=== PATIENT | male | born 2000 | race Caucasian/White ===

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

== ENCOUNTER 2021-01-06 17:10 | Emergency (ER) | payer BC, SELFPAY ==
[2021-01-06 17:12] VITALS: BP 137/74; PULSE 118; RESP 20; TEMP 37.3; O2SAT 95; BMI 33.5
--- NOTE | 2021-01-06 17:42 | EDS_ITS ---
HPI History of Present Illness Chief Complaint: Fever Narrative Narrative: Patient presenting with chills, mild cough, body aches. He has no change in taste or smell. Patient symptoms have been 2 days in duration. He states he is not significantly short of breath. Patient did have a fever prior to coming in took ibuprofen and currently he is afebrile. Patient states he has also had nausea with his illness. He denies sick contacts. He has not had a Covid vaccine. PFSH PFS Medical History Heart murmur Home Medications ondansetron HCl [Zofran] 4 mg PO Q8H PRN #14 tab 01/06/21 [Rx Last Taken Unknown] Allergy/AdvReac Type Severity Reaction Status Date / Time amoxicillin Allergy Rash Verified 01/06/21 17:11 Social History Smoking Status: Never smoker ROS ROS ED Constitutional Constitutional ED: Reports chills and fever(s) Eyes Eyes: Denies blurry vision or diplopia ENT ENT ED: Denies rhinorrhea or sore throat Cardiovascular Cardiovascular: Denies chest pain or palpitations Respiratory/Chest Respiratory/Chest: Reports cough; Denies dyspnea or sputum Gastrointestinal Gastrointestinal: Reports nausea; Denies abdominal pain, constipation, diarrhea or vomiting Genitourinary Genitourinary ED: Denies dysuria or hematuria Musculoskeletal Musculoskeletal: Reports myalgias; Denies arthralgias, back pain or neck pain Integumentary Denies abscess or rash Neurologic Neurologic: Reports headache(s); Denies paresthesias or weakness EXAM Physical Exam Const Vital Signs: 01/06/21 17:12 01/06/21 17:26 Temperature 99.1 F Temperature Source Temporal Pulse Rate 118 H Respiratory Rate 20 H Respiratory Effort Normal Non-Labored Respiratory Pattern Normal Blood Pressure 137/74 H Blood Pressure Mean 95 Pulse Ox 95 Oxygen Delivery Method Room Air Positive well nourished General Appearance ED: NAD; Negative for cyanotic or diaphoretic HEENT Reports moist mucous membranes Negative for trauma Eyes PERRL and EOMs intact bilaterally Neck no lymphadenopathy and supple Resp normal respiratory effort and clear to auscultation bilaterally Cardio regular rate and regular rhythm Extremity normal to inspection General Extremety ED: Negative for edema or tenderness General Extremity: Negative for edema Neuro oriented x3 and CN's II-XII intact bilaterally Sensorium / Orientation: alert Skin no rashes or lesions noted MDM MDM MDM Narrative Medical decision making narrative: Patient presenting with fever that has resolved as well as body aches, chills, nausea. Patient states he has been sick for 2 days. Patient had rapid Covid testing which was negative. Chest x-ray on my interpretation shows no acute cardiopulmonary process. Patient did indicate that he would like to have the Covid vaccine however I counseled him that he should wait until his symptoms have resolved and then he should get vaccinated for COVID-19. I did pre parole counseling aide him that what ever he has a still viral and that he should stay away from other people to prevent other illness. Patient amenable this plan. Patient was given Zofran for home for his nausea. He is encouraged to drink plenty of p.o. fluids and take Tylenol and ibuprofen for fevers. He is given return precautions. Impression: 1. Viral syndrome Discharge Plan Triage Chief Complaint: Fever ED Provider: Henrique Simpson Dx/Rx/DC Orders Instructions: ED Viral Syndrome (Adult) Prescriptions: New ondansetron HCl [Zofran] 4 mg tablet 4 mg PO Q8H PRN (Reason: nausea and vomiting) Qty: 14 RF: 0 Primary Care Provider: Carlos Prasad Referrals: Carlos Prasad MD [Primary Care Provider] - Disposition Disposition: Home, Self Care
--- NOTE | 2021-01-06 17:51 | RAD_ITS ---
STUDY: X-RAY CHEST REASON FOR EXAM: Male, 20 years old. Cough TECHNIQUE: Single AP portable view of the chest. COMPARISON: None. FINDINGS: The lungs are clear and expanded. There is no demonstrated pleural abnormality. Normal size heart. Normal mediastinum and marshall. Normal visualized pulmonary arteries. Normal visualized aortic arch and descending thoracic aorta. Normal visualized thoracic spine. Normal visualized ribs, clavicles, and shoulders. There is no demonstrated abnormality of the visualized soft tissue structures of the upper abdomen. RAD/Chest 1 View (Portable) IMPRESSION: Normal x-ray examination of the chest. Electronically Signed: Abundio Mosher MD at 15:25 EDT , Service support ,
[2021-01-06 18:55] VITALS: PULSE 111; RESP 20; TEMP 38.2; O2SAT 97
== END 2021-01-06 18:58 | disposition home or self-care (01) ==
LOC: ED 18:21
PROVIDERS: Emergency Provider Student in an Organized Health Care Education/Training Program; PCP Pediatrics
DX: B34.9 Viral infection, unspecified (principal); R68.83 Chills (without fever); R05 Cough; M79.10 Myalgia, unspecified site; R11.0 Nausea; R51.9 Headache, unspecified
CPT/HCPCS: 71045; 87426; 99282

== ENCOUNTER 2021-01-15 09:01 | Observation (INO) | payer BC, SELFPAY ==
[2021-01-15] VITALS (12 sets, daily range): BP systolic 113–129; BP diastolic 62–75; PULSE 74–105; RESP 16–30; TEMP 36.8–38.1; O2SAT 93–96; BMI 32.1; BMI 31.3
--- NOTE | 2021-01-15 09:26 | RAD_ITS ---
STUDY: X-RAY CHEST REASON FOR EXAM: Male, 20 years old. 2 week history of Covid type symptoms. TECHNIQUE: Single AP portable view of the chest. COMPARISON: Comparison is made with prior study dated 01/06/2021. FINDINGS: EKG electrode are seen. New infiltrates are seen in the lingular segment of the left upper lobe as well as the left lower lobe. There is no demonstrated pleural abnormality. Normal size heart. Normal mediastinum and marshall. Normal visualized pulmonary arteries. Normal visualized aortic arch and descending thoracic aorta. Normal visualized thoracic spine. Normal visualized ribs, clavicles, and shoulders. There is no demonstrated abnormality of the visualized soft tissue structures of the upper abdomen. RAD/Chest 1 View (Portable) IMPRESSION: Left lower lobe and lingular infiltrates. Electronically Signed: Abundio Mosher MD at 10:11 EDT , Service support ,
--- NOTE | 2021-01-15 09:28 | EX.ED.DYSGE1 ---
HPI History of Present Illness Chief Complaint: Cough Narrative Narrative: 20-year-old male presenting with shortness of breath and cough. Patient states symptoms started approximately 10 days ago. He was seen in the ED 9 days ago and tested negative for Covid. He tested positive for Covid 2 days ago at [facility]. Complains of body aches, shortness of breath. He has not been vaccinated for Covid. Recent Illness/Hospitalization: No PFSH PFS Medical History Heart murmur Home Medications ondansetron HCl [Zofran] 4 mg PO Q8H PRN #14 tab 01/06/21 [Rx Last Taken Unknown] aripiprazole [Abilify] 5 mg PO DAILY 01/15/21 [History Last Taken Unknown] desvenlafaxine succinate [Pristiq] 50 mg PO DAILY 01/15/21 [History Last Taken Unknown] Allergy/AdvReac Type Severity Reaction Status Date / Time amoxicillin Allergy Rash Verified 01/15/21 09:04 Social History Smoking Status: Never smoker ROS ROS ED Constitutional Constitutional ED: Reports fever(s) Eyes Eyes: Denies change in vision ENT ENT ED: Denies rhinorrhea or sore throat Cardiovascular Cardiovascular: Denies chest pain or palpitations Respiratory/Chest Respiratory/Chest: Reports cough and dyspnea Gastrointestinal Gastrointestinal: Reports diarrhea; Denies abdominal pain, nausea or vomiting Genitourinary Genitourinary ED: Denies dysuria Musculoskeletal Musculoskeletal: Reports myalgias Integumentary Denies rash Neurologic Neurologic: Denies headache(s) Psychiatric Psychiatric: Denies suicidal thoughts EXAM Physical Exam Const Vital Signs: 01/15/21 09:02 01/15/21 09:28 01/15/21 10:08 Temperature 100.6 F H 100.6 F H 100.6 F H Temperature Source Temporal Temporal Temporal Pulse Rate 105 H 102 H 101 H Respiratory Rate 27 H 30 H 18 Respiratory Effort Short of Breath Respiratory Pattern Tachypnea Blood Pressure 129/75 H 123/74 H 118/71 Blood Pressure Mean 93 90 86 Pulse Ox 93 94 94 Oxygen Delivery Method Room Air Room Air 01/15/21 11:36 01/15/21 12:00 Temperature 98.6 F 98.6 F Temperature Source Oral Oral Pulse Rate 85 81 Respiratory Rate 20 H 18 Respiratory Effort Respiratory Pattern Blood Pressure 116/70 120/71 Blood Pressure Mean 85 87 Pulse Ox 94 94 Oxygen Delivery Method Room Air Room Air Positive well nourished and well developed General Appearance ED: well developed HEENT Reports normocephalic and head/scalp atraumatic Eyes PERRL and EOMs intact bilaterally Neck supple General: Negative for tenderness Chest Wall inspection of chest normal Resp normal respiratory effort and clear to auscultation bilaterally Cardio regular rate and regular rhythm GI non-tender and non-distended Palpation: soft; Negative for guarding or rebound tenderness present no CVA tenderness Extremity normal to inspection Neuro oriented x3 Sensorium / Orientation: alert Psych mental status grossly normal MDM MDM MDM Narrative Medical decision making narrative: Patient was given IV fluids, Tylenol. Due to elevated D-dimer, CTA chest was obtained. CTA chest shows diffuse bilateral pulmonary emboli. Bilateral alveolar infiltrates as well as airspace disease in the lingular segment of the left upper lobe as well as the left lower lobe. Patient will be started on Eliquis. Discussed with hospitalist for admission. Lab Data Attestation: I reviewed the patient's lab results. Labs: Laboratory Results - last 24 hr 01/15/21 01/15/21 01/15/21 09:50 09:50 09:50 WBC 8.0 RBC 5.35 Hgb 15.0 Hct 46.3 MCV 86.5 MCH 28.0 MCHC 32.4 RDW Std Deviation 38.4 RDW Coeff of Uriel 12.0 Plt Count 276 MPV 9.5 Immature Gran % (Auto) 0.500 Neut % (Auto) 74.9 H Lymph % (Auto) 16.5 L [place] % (Auto) 7.6 Eos % (Auto) 0.4 Baso % (Auto) 0.1 Absolute Neuts (auto) 6.0 Absolute Lymphs (auto) 1.32 Nucleated RBC % 0 D-Dimer Quant (PE/DVT) 1.26 H* Sodium 132 L Potassium 3.6 Chloride 96 L Carbon Dioxide 27.0 Anion Gap 9 BUN 11 Creatinine 0.81 Estim Creat Clear Calc 146.69 Est GFR (MDRD) Af Amer 157 Est GFR (MDRD) Non-Af 130 BUN/Creatinine Ratio 13.6 Glucose 89 Calcium 8.7 Radiography Diagnostic Testing: Radiology Impression Chest X-Ray 01/15/21 09:26 IMPRESSION: Left lower lobe and lingular infiltrates. Electronically Signed: Abundio Mosher MD at 10:11 EDT , Service support , Chest CTA 01/15/21 10:16 IMPRESSION: Diffuse bilateral pulmonary emboli. Bilateral alveolar infiltrates as well as airspace disease in the lingular segment of the left upper lobe as well as the left lower lobe. Electronically Signed: Abundio Mosher MD at 10:58 EDT , Service support , Discharge Plan Dx/Rx/DC Orders Clinical Impression: Pneumonia due to COVID-19 virus, Bilateral pulmonary embolism Disposition Disposition: Acute Care [facility]
[2021-01-15 09:59] LABS: Absolute Lymphocyte Count 1.32 X10^3/uL (0.83-4.51); Basophil# 0.01 X10^3/uL; Basophil% 0.1 % (0-1); Eosinophil# 0.03 X10^3/uL; Eosinophils% 0.4 % (0-5); Hematocrit 46.3 % (40-54); Lymphocyte # 1.32 X10^3/ul (0.83-4.51); Lymphocyte % 16.5 % (19-41); Mean Corp Hgb Conc 32.4 g/dL (32-36); Mean Corpuscular Volume 86.5 fL (80-94); Mean Platelet Vol. 9.5 fl (6.2-12.0); Monocyte# 0.61 X10^3/uL; Monocyte% 7.6 % (0-10); NRBC Flagged by Analyzer 0 % (0-5); Neutrophil % 74.9 % (47-70); Platelet Count 276 K/mm3 (150-450); RBC Distribution Width SD 38.4 fl (35.1-43.9); Red Blood Count 5.35 M/mm3 (4.6-6.2)
[2021-01-15 10:07] LABS: Anion Gap 9 (5-15); BUN 11 mg/dL (7-18); BUN/Creat Ratio 13.6 RATIO (10-20); Calcium,Total 8.7 mg/dL (8.5-10.1); Chloride 96 mmol/L (98-107); Creatinine, Serum 0.81 mg/dL (0.70-1.30); EST Glomerular Filtration Rate 130 mL/min (>60); Est Glom Filt Rate - Afr Amer 157 mL/min (>60); Estimated Creatinine Clearance 146.69 ml/min; Glucose 89 mg/dL (74-106); Potassium 3.6 mmol/L (3.5-5.1); Sodium Level 132 mmol/L (136-145)
[2021-01-15] MEDS: Acetaminophen 500 MG Tablet 1000 MG PO (10:08)
[2021-01-15] MEDS: 0.9% Normal Saline 1,000 ML 1000 ML IV (10:08)
[2021-01-15 10:16] LABS: D-Dimer Quantitative (DVT/PE) 1.26 FEU/ug/m (0.27-0.49)
--- NOTE | 2021-01-15 10:16 | CT_ITS ---
STUDY: CTA CHEST REASON FOR EXAM: Male, 20 years old. Elevated d-dimer. Cough. Recent diagnosis of Covid. RADIATION DOSAGE (If Supplied By Facility): CTDIvol = ( 11.30 ) mGy, DLP = ( 431.45 ) mGycm TECHNIQUE: The examination was performed with the intravenous administration of IV 100mL Isovue-370. Post-processing of the angiographic images was performed, with multiplanar reformation and 3D reconstruction. Individualized dose optimization techniques were used for this CT. COMPARISON: Comparison is made with prior chest radiograph done earlier today. FINDINGS: (Bilateral pulmonary arterial emboli. Normal thoracic aorta and visualized great vessels. There is no demonstrated aortic dissection. Normal heart and pericardium. Normal mediastinum. Normal hilar regions. Normal visualized trachea and bronchi. The lungs are well expanded. Patchy alveolar infiltrates in both upper lobes worse on the left side. Patchy alveolar infiltrates in the right lung. Airspace disease in the lingular segment of the left upper lobe as well as in the left lower lobe. Normal pleura. Normal chest wall structures. Normal osseous structures. Diffuse fatty infiltration of the liver. CT/CTA Chest W/WO Contrast IMPRESSION: Diffuse bilateral pulmonary emboli. Bilateral alveolar infiltrates as well as airspace disease in the lingular segment of the left upper lobe as well as the left lower lobe. Electronically Signed: Abundio Mosher MD at 10:58 EDT , Service support ,
--- NOTE | 2021-01-15 12:06 | PCM.HP.STD ---
HPI - General General Date of Admission: 01/15/21 Date of Service: 01/15/21 Chief Complaint: Cough, shortness of breath - 10 days HPI Narrative CHARAN PETERSON, is a 20 M who presents with above ongoing for 10 days. Patient was recently tested positive for Covid about 2 days ago in the [facility]. He comes in with progressive shortness of breath. He denied being vaccinated for Covid. Patient was started on IV fluids. Admitting chest x-ray shows left lower lobe and lingular infiltrates. CTA of the chest showed diffuse bilateral PE, bilateral alveolar infiltrates as well as airspace disease in the lingular segment of the left upper lobe as well as the left lower lobe. Patient remains not on oxygen. [facility] Medical History Heart murmur Home Medications ondansetron HCl [Zofran] 4 mg PO Q8H PRN #14 tab 01/06/21 [Rx Last Taken 01/15/21 09:00] aripiprazole [Abilify] 5 mg PO DAILY 01/15/21 [History Last Taken 01/15/21 09:00] desvenlafaxine succinate [Pristiq] 50 mg PO DAILY 01/15/21 [History Last Taken 01/15/21 09:00] Allergy/AdvReac Type Severity Reaction Status Date / Time amoxicillin Allergy Rash Verified 01/15/21 09:04 Social History (Updated 01/15/21 @ 19:[address] Nivia Monroe MD) Smoking Status: Never smoker alcohol intake: never substance use type: does not use ROS ROS Narrative Constitutional: Reports: Malaise, Weakness, Fatigue. Denies: Anorexia, Chills, Fever, Night Sweats, Weight Change Eyes: Denies: Blurred vision, Cataracts, Conjunctivae Inflammation, Pain, Redness, Vision Change HEENT: Admits to loss of smell and taste denies: Difficulty Hearing, Difficulty Swallowing, Head Aches, Hearing Changes Cardiovascular: Denies: Chest Pain, Orthopnea, Palpitations Respiratory: Admits to cough, Shortness of breath at rest, denies sputum production Gastrointestinal: Denies: Abdominal Pain, Nausea, Vomiting Vital Signs Vital Signs Vital Signs: 01/15/21 09:02 01/15/21 09:28 01/15/21 10:08 Temperature 100.6 F H 100.6 F H 100.6 F H Temperature Source Temporal Temporal Temporal Pulse Rate 105 H 102 H 101 H Respiratory Rate 27 H 30 H 18 Respiratory Effort Short of Breath Respiratory Pattern Tachypnea Blood Pressure 129/75 H 123/74 H 118/71 Blood Pressure Mean 93 90 86 Pulse Ox 93 94 94 Oxygen Delivery Method Room Air Room Air 01/15/21 11:36 01/15/21 12:00 Temperature 98.6 F 98.6 F Temperature Source Oral Oral Pulse Rate 85 81 Respiratory Rate 20 H 18 Respiratory Effort Respiratory Pattern Blood Pressure 116/70 120/71 Blood Pressure Mean 85 87 Pulse Ox 94 94 Oxygen Delivery Method Room Air Room Air Weight Weight: 98.5 kg Body Mass Index (BMI) 32.1 Physical Exam Narrative Physical exam: General: Alert, Oriented x3, Cooperative, No apparent distress, Well developed HEENT: Atraumatic Oral: Moist Mucosa Neck: Supple Lungs: Clear to auscultation Cardiovascular: HS I+II, regular, no murmurs Abdomen: Bowel Sounds Present, Soft, Non Tender Extremities: No edema Results Lab / Micro Data Result Diagrams: 01/15/21 09:50 01/15/21 09:50 Labs: Laboratory Results - last 24 hr 01/15/21 09:50: WBC 8.0, RBC 5.35, Hgb 15.0, Hct 46.3, MCV 86.5, MCH 28.0, MCHC 32.4, RDW Std Deviation 38.4, RDW Coeff of Uriel 12.0, Plt Count 276, MPV 9.5, Immature Gran % (Auto) 0.500, Neut % (Auto) 74.9 H, Lymph % (Auto) 16.5 L, [place] % (Auto) 7.6, Eos % (Auto) 0.4, Baso % (Auto) 0.1, Absolute Neuts (auto) 6.0, Absolute Lymphs (auto) 1.32, Nucleated RBC % 0 01/15/21 09:50: D-Dimer Quant (PE/DVT) 1.26 H* 01/15/21 09:50: Sodium 132 L, Potassium 3.6, Chloride 96 L, Carbon Dioxide 27.0, Anion Gap 9, BUN 11, Creatinine 0.81, Estim Creat Clear Calc 146.69, Est GFR (MDRD) Af Amer 157, Est GFR (MDRD) Non-Af 130, BUN/Creatinine Ratio 13.6, Glucose 89, Calcium 8.7 Radiology Impression Chest X-Ray 01/15/21 09:26 IMPRESSION: Left lower lobe and lingular infiltrates. Electronically Signed: Abundio Mosher MD at 10:11 EDT , Service support , Chest CTA 01/15/21 10:16 IMPRESSION: Diffuse bilateral pulmonary emboli. Bilateral alveolar infiltrates as well as airspace disease in the lingular segment of the left upper lobe as well as the left lower lobe. Electronically Signed: Abundio Mosher MD at 10:58 EDT , Service support , Assessment & Plan Assessment/Plan (1) Bilateral pulmonary embolism: (2) Pneumonia due to COVID-19 virus: PLAN: Patient is without oxygen We will admit and monitor Start on Eliquis Recheck ambulation on room air Possible discharge in a.m. Charges/Coding Visit Charges OBSV E&M: 63169 Initial observation care L3
--- NOTE | 2021-01-15 12:21 | NURSING ---
I CALLED [facility] IN AN ATTEMPT TO GET THE COVID TEST RESULT FAXED OVER. I WAS INFORMED THAT THEY SEND THEIR TEST OUT TO A LAB AND THAT THEY DID NOT HAVE A PHONE NUMBER FOR THAT LAB. I LOOKED THROUGH THE WEBSITE AND SENT A REQUEST FOR THE LAB TO CALL US.
[2021-01-15] MEDS: APIXABAN 5 MG TABLET 10 MG PO ×2 (12:47→21:11)
--- NOTE | 2021-01-15 13:07 | NURSING ---
103 OBS NABOB BACON, NICOLE PE
[2021-01-15] MEDS: 0.9% Saline Lock 10 ML Syringe IV (17:33)
[2021-01-15] MEDS: 0.9% Normal Saline 1,000 ML 75 ML IV (17:33)
--- NOTE | 2021-01-15 19:51 | NURSING ---
Pandemic documentation started 01/15/21 at 1900.
[2021-01-16 02:59] VITALS: PULSE 92
[2021-01-16 03:02] VITALS: BP 111/60; PULSE 84; RESP 17; TEMP 37.3; O2SAT 95
[2021-01-16 07:25] VITALS: PULSE 85
[2021-01-16 07:26] VITALS: O2SAT 95
--- NOTE | 2021-01-16 07:32 | PCM.DC ---
Discharge Instructions Diet Discharge Diet: No restrictions Activity Discharge Activity: Return to Normal Activity Follow Up Care Test Results: Test results from this visit will be discussed in further detail at your follow-up appointment, if applicable. Discharge Plan Admission Admit Date/Time: 01/15/21 12:04 Primary Reason for Your Visit: Acute bilateral PE Attending Provider: Nivia Monroe Primary Care Provider: Carlos Prasad Instructions Additional Instructions / Restrictions: Continue to take all your medications as prescribed. Watch out for bleeding from any orifices. Follow-up with your primary care doctor within 1 to 2 weeks. Continue to use your incentive spirometer. Continue to quarantine for total of 21 days. Discharge Orders/Prescriptions Prescriptions: Continued ondansetron HCl [Zofran] 4 mg tablet 4 mg PO Q8H PRN (Reason: nausea and vomiting) Qty: 14 RF: 0 aripiprazole [Abilify] 5 mg Tablet 5 mg PO DAILY RF: 0 desvenlafaxine succinate [Pristiq] 50 mg Tablet Extended Release 24 Hr 50 mg PO DAILY RF: 0 Referrals / Follow Up: Carlos Prasad MD [Primary Care Provider] - Within 2 Weeks Disposition Disposition (needs filled in before D/C Order can be placed): Home, Self Care
--- NOTE | 2021-01-16 07:33 | PCM.DC.SUM ---
Providers Date of Admission: 01/15/21 Date of Discharge: 01/16/21 Primary Care Physician: Dr. Carlos Prasad MD Reason For Visit: COVID-INFECTION/BILATERAL PE Diagnosis Discharge Diagnosis (1) Bilateral pulmonary embolism: Status: Acute Code(s): I26.99 - Other pulmonary embolism without acute cor pulmonale (2) Pneumonia due to COVID-19 virus: Status: Acute Code(s): U07.1 - COVID-19; J12.82 - Pneumonia due to coronavirus disease 2019 Medications at Discharge Home Medications ondansetron HCl [Zofran] 4 mg PO Q8H PRN #14 tab 01/06/21 aripiprazole [Abilify] 5 mg PO DAILY 01/15/21 desvenlafaxine succinate [Pristiq] 50 mg PO DAILY 01/15/21 apixaban [Eliquis] See Taper PO BID 7 Days #14 tab 01/16/21 Hospital Course Operations None Procedures None Summary of Care Provided Minutes Spent on Discharge: 45 Hospital Course: 20-year-old male, who presented with shortness of breath and cough ongoing for 10 days. Patient is no vaccinated. He was recently in the ED about 9 days ago and tested negative for Covid. He went to the [facility] 2 days prior to arrival and was tested positive for Covid. He presented with progressive shortness of breath. CTA of the chest was positive for bilateral diffuse PE. Patient was started on Eliquis. He did not require oxygen. He was monitored overnight with no acute complaints. He was evaluated for oxygen on room air on ambulation and did not require oxygen. He will be on Eliquis. He was told to follow-up with his primary care doctor within 1 to 2 weeks. Physical Exam Narrative Physical exam: General: Alert, Oriented x3, Cooperative, No apparent distress, Well developed HEENT: Atraumatic Oral: Moist Mucosa Neck: Supple Lungs: Clear to auscultation Cardiovascular: HS I+II, regular, no murmurs Abdomen: Bowel Sounds Present, Soft, Non Tender Extremities: No edema Weight / BMI Weight Weight: 96.162 kg Body Mass Index (BMI) 31.3 ABG / Lab / Microbiology Data Result Diagrams: 01/16/21 07:15 01/16/21 07:15 Laboratory: Laboratory Results - last 24 hr 01/15/21 09:50: WBC 8.0, RBC 5.35, Hgb 15.0, Hct 46.3, MCV 86.5, MCH 28.0, MCHC 32.4, RDW Std Deviation 38.4, RDW Coeff of Uriel 12.0, Plt Count 276, MPV 9.5, Immature Gran % (Auto) 0.500, Neut % (Auto) 74.9 H, Lymph % (Auto) 16.5 L, [place] % (Auto) 7.6, Eos % (Auto) 0.4, Baso % (Auto) 0.1, Absolute Neuts (auto) 6.0, Absolute Lymphs (auto) 1.32, Nucleated RBC % 0 01/15/21 09:50: D-Dimer Quant (PE/DVT) 1.26 H* 01/15/21 09:50: Sodium 132 L, Potassium 3.6, Chloride 96 L, Carbon Dioxide 27.0, Anion Gap 9, BUN 11, Creatinine 0.81, Estim Creat Clear Calc 146.69, Est GFR (MDRD) Af Amer 157, Est GFR (MDRD) Non-Af 130, BUN/Creatinine Ratio 13.6, Glucose 89, Calcium 8.7 Microbiology: Microbiology 01/15/21 12:45 Mucosa - Nasopharyngeal SARS-CoV-2 Antigen (Rapid) - Final SARS-CoV-2 (COVID 19) Radiography Diagnostic Testing: Radiology Impression Chest X-Ray 01/15/21 09:26 IMPRESSION: Left lower lobe and lingular infiltrates. Electronically Signed: Abundio Mosher MD at 10:11 EDT , Service support , Chest CTA 01/15/21 10:16 IMPRESSION: Diffuse bilateral pulmonary emboli. Bilateral alveolar infiltrates as well as airspace disease in the lingular segment of the left upper lobe as well as the left lower lobe. Electronically Signed: Abundio Mosher MD at 10:58 EDT , Service support , D/C Instructions Discharge Diet: No restrictions Meaningful Use Info Meaningful Use Diagnoses (Choose all that apply): None applicable Discharge Plan Admission Admit Date/Time: 01/15/21 12:04 Primary Reason for Your Visit: Acute bilateral PE Attending Provider: Nivia Monroe Primary Care Provider: Carlos Prasad Instructions Additional Instructions / Restrictions: Continue to take all your medications as prescribed. Watch out for bleeding from any orifices. Follow-up with your primary care doctor within 1 to 2 weeks. Continue to use your incentive spirometer. Continue to quarantine for total of 21 days. Discharge Orders/Prescriptions Prescriptions: New Eliquis 5 mg Tablet See Taper mg PO BID 7 Days Qty: 14 RF: 0 Continued ondansetron HCl [Zofran] 4 mg tablet 4 mg PO Q8H PRN (Reason: nausea and vomiting) Qty: 14 RF: 0 aripiprazole [Abilify] 5 mg Tablet 5 mg PO DAILY RF: 0 desvenlafaxine succinate [Pristiq] 50 mg Tablet Extended Release 24 Hr 50 mg PO DAILY RF: 0 Referrals / Follow Up: Carlos Prasad MD [Primary Care Provider] - Within 2 Weeks Disposition Disposition (needs filled in before D/C Order can be placed): Home, Self Care Charges/Coding Visit Charges OBSV E&M: 70074 Observation care discharge
[2021-01-16 07:34] LABS: Basophil# 0.02 X10^3/uL; Basophil% 0.3 % (0-1); Eosinophil# 0.17 X10^3/uL; Eosinophils% 2.7 % (0-5); Hematocrit 43.5 % (40-54); Hemoglobin 13.9 g/dL (13.0-16.5); Lymphocyte % 25.2 % (19-41); Mean Corpuscular Hgb 27.7 pg (27.0-32.0); Mean Corpuscular Volume 86.7 fL (80-94); Mean Platelet Vol. 9.4 fl (6.2-12.0); Monocyte# 0.56 X10^3/uL; Monocyte% 8.8 % (0-10); NRBC Flagged by Analyzer 0 % (0-5); Neutrophil # 3.96 X10^3/uL (2.7-7.7); Neutrophil % 62.2 % (47-70); Platelet Count 309 K/mm3 (150-450); RBC Distribution Width SD 38.5 fl (35.1-43.9); Red Blood Count 5.02 M/mm3 (4.6-6.2); White Blood Count 6.4 K/mm3 (4.4-11.0)
[2021-01-16 07:50] VITALS: O2SAT 97
[2021-01-16] MEDS: ARIPiprazole 5 MG Tablet PO (07:51)
[2021-01-16] MEDS: Venlafaxine XR 37.5 MG Capsule PO (07:51)
[2021-01-16] MEDS: APIXABAN 5 MG TABLET 10 MG PO (07:52)
[2021-01-16 07:53] VITALS: BP 112/61; PULSE 86; RESP 18; TEMP 37; O2SAT 96
[2021-01-16 08:18] LABS: ALB/GLOB Ratio 0.7 RATIO (0.9-2.4); AST(SGOT) 26 U/L (15-37); Alanine Aminotransfer ALT/SGPT 38 U/L (16-61); Albumin, Serum 3.1 g/dL (3.2-5.0); Alkaline Phosphatase 44 U/L (45-117); Anion Gap 10 (5-15); BUN 9 mg/dL (7-18); BUN/Creat Ratio 15.9 RATIO (10-20); Calcium,Total 8.5 mg/dL (8.5-10.1); Chloride 100 mmol/L (98-107); Creatinine, Serum 0.57 mg/dL (0.70-1.30); EST Glomerular Filtration Rate 196 mL/min (>60); Est Glom Filt Rate - Afr Amer 237 mL/min (>60); Estimated Creatinine Clearance 208.45 ml/min; Globulin 4.2 g/dL (2.2-4.2); Glucose 74 mg/dL (74-106); Potassium 3.5 mmol/L (3.5-5.1); Protein, Total 7.3 g/dL (6.4-8.2); Sodium Level 134 mmol/L (136-145)
--- NOTE | 2021-01-16 09:37 | CASEMGMT ---
Pt to be sent home on Eliquis at discharge. Med e-scribed to [facility] retail pharmacy and call to [place] in pharmacy to notify of med and to apply 30 day free trial card, voices understanding. Pt has been on room air since arrival and does not qualify for home oxygen with ambulation. Gisel ARROYO CM
== END 2021-01-16 07:19 | disposition home or self-care (01) ==
LOC: ED 12:27 → PCU 12:50
PROVIDERS: Admitting Provider Internal Medicine; Emergency Provider Emergency Medicine; PCP Pediatrics; Visit Provider Internal Medicine
DX: U07.1 COVID-19 (principal); J12.82 Pneumonia due to coronavirus disease 2019; I26.99 Other pulmonary embolism without acute cor pulmonale; Z79.899 Other long term (current) drug therapy; Z79.01 Long term (current) use of anticoagulants; R01.1 Cardiac murmur, unspecified
CPT/HCPCS: 36415; 71045; 71275; 80048; 80053; 85025; 85379; 87426; 96360; 96361; 99218; 99251; 99285; J7030; Q9967; A4216; G0378; G0463

== ENCOUNTER 2021-12-23 20:32 | Emergency (ER) | payer BC, SELFPAY ==
[2021-12-23 20:33] VITALS: BP 154/86; PULSE 78; RESP 16; TEMP 36.4; O2SAT 97; BMI 34.0
--- NOTE | 2021-12-23 21:03 | EKG12_ITS ---
Test Reason : palps Blood Pressure : / mmHG Vent. Rate : 076 BPM Atrial Rate : 076 BPM P-R Int : 134 ms QRS Dur : 098 ms QT Int : 394 ms P-R-T Axes : 004 052 017 degrees QTc Int : 443 ms Normal sinus rhythm Normal ECG Confirmed by GILLIAN GRUBER, KIMMY ([id number]), department editor CASH POSADAS ([id number]) on 12/25/2021 11:31:24 AM Referred By: Solomon Confirmed By:KIMMY FRENCH MD
--- NOTE | 2021-12-23 21:04 | EDS_ITS ---
HPI History of Present Illness Chief Complaint: Palpitations Informant: patient Onset/Context/Timing Onset: Weeks (1) Context: Sudden Onset Timing: Intermittent and Lasts (1 min or less) Quality: sharp Location: left chest Current Severity: Mild Maximum Severity: Mild Worsened by: nothing Relieved by: nothing Associated Symptoms Associated Symptoms: palpitations but not necessarily simultaneously Narrative Narrative: Patient has been having intermittent palpitations as well as separate sharp left chest pains without radiation or trigger or pleuritic component for the past week. Patient states furthermore that he has had the palpitations off and on for the last 3 to 4 years. He has been told before that he has had a murmur but he has been told by other people that he does not have a murmur. He has never seen his PCP for this. He is on Eliquis because of a history of pulmonary emboli. He has had no bleeding. He has had no illness since he had COVID 6 months ago. He denies any lightheadedness or near syncope. No dyspnea. He uses no drugs or substances except for caffeine, he has noticed no association with his caffeine use and worsening palpitations. [facility] Medical History (Updated 12/23/21 @ 23:[address] Minor Ruiz MD) Anxiety Bilateral pulmonary embolism Depression Heart murmur Home Medications ondansetron HCl 4 mg tablet (Zofran) 4 mg PO Q8H PRN nausea and vomiting #14 tabs 01/06/21 [Rx Last Taken 01/15/21 09:00] aripiprazole 5 mg tablet (Abilify) 5 mg PO DAILY mood 01/15/21 [History Last Taken 01/15/21 09:00] desvenlafaxine succinate 50 mg tablet,extended release 24 hr (Pristiq) 50 mg PO DAILY 01/15/21 [History Last Taken 01/15/21 09:00] apixaban 5 mg tablet (Eliquis) See Taper PO BID 7 days #14 tabs 01/16/21 [Rx Last Taken Unknown] metoprolol tartrate 25 mg tablet 25 mg PO BID #60 tabs 12/23/21 [Rx Last Taken Unknown] Allergy/AdvReac Type Severity Reaction Status Date / Time amoxicillin Allergy Rash Verified 01/24/21 14:42 Surgical History no surgical history Social History Smoking Status: Never smoker alcohol intake: never substance use type: does not use ROS ROS ED Constitutional Constitutional ED: Denies chills or fever(s) Eyes Eyes: Denies change in vision or diplopia ENT ENT ED: Denies rhinorrhea or sore throat Cardiovascular Cardiovascular: Reports chest pain and palpitations Respiratory/Chest Respiratory/Chest: Denies cough or dyspnea Gastrointestinal Gastrointestinal: Denies abdominal pain, diarrhea, nausea or vomiting Genitourinary Genitourinary ED: Denies dysuria or hematuria Musculoskeletal Musculoskeletal: Denies back pain or neck pain Integumentary Denies abscess or rash Neurologic Neurologic: Denies headache(s), paresthesias or weakness Psychiatric Psychiatric: Denies anxiety or suicidal thoughts EXAM Physical Exam Const Vital Signs: 12/23/21 20:33 12/23/21 20:45 12/23/21 23:22 Temperature 97.5 F L Temperature Source Temporal Pulse Rate 78 83 Respiratory Rate 16 16 Respiratory Effort Normal Non-Labored Blood Pressure 154/86 H 144/88 H Blood Pressure Mean 108 106 Pulse Ox 97 96 Oxygen Delivery Method Room Air Room Air Positive well nourished and well developed General Appearance ED: well developed and NAD HEENT Reports moist mucous membranes normocephalic and atraumatic Eyes PERRL and EOMs intact bilaterally Neck full ROM and supple Resp normal respiratory effort and clear to auscultation bilaterally Cardio regular rate, regular rhythm and no murmurs Cardio Narrative: Occasional skipped, coinciding with the patient feeling it and with a single PVC on the monitor, this happens a total of 5 or 6 times during initial interview. GI non-tender and non-distended Auscultation: normoactive bowel sounds Palpation: soft Back/Spine no CVA tenderness General Back: other FROM Extremity normal to inspection General Extremety ED: Negative for edema, pulses abnormal or tenderness General Extremity: Negative for edema or pulses abnormal Neuro oriented x3, CN's II-XII intact bilaterally and no sensory deficits noted Sensorium / Orientation: awake and alert Motor Exam: strength 5/5 throughout Skin no rashes or lesions noted and no wounds MDM MDM MDM Narrative Medical decision making narrative: Patient having noncardiac pain, but PVCs causing palpitation symptoms. His blood pressures in the 140s and 150s. He is calm. His potassium was a little low in the work-up. I think it would be reasonable to give him a dose of potassium as well as put him on metoprolol tartrate 25 mg twice daily, and have him follow-up with cardiology. I do not hear a cardiac murmur, however it certainly is possible that he has mitral valve prolapse or a leaky valve for some sort of that could be related to his PVCs. I think seeing them as an outpatient would be very reasonable and he is comfortable with that plan. Lab Data Attestation: I reviewed the patient's lab results. Labs: Laboratory Results - last 24 hr 12/23/21 12/23/21 21:12 21:12 WBC 12.1 H RBC 5.27 Hgb 14.9 Hct 45.6 MCV 86.5 MCH 28.3 MCHC 32.7 RDW Std Deviation 38.5 RDW Coeff of Uriel 12.1 Plt Count 323 MPV 9.9 Immature Gran % (Auto) 0.600 Neut % (Auto) 68.1 Lymph % (Auto) 22.4 Starke % (Auto) 6.9 Eos % (Auto) 1.6 Baso % (Auto) 0.4 Absolute Neuts (auto) 8.2 H Absolute Lymphs (auto) 2.71 Nucleated RBC % 0 Sodium 137 Potassium 3.4 L Chloride 102 Carbon Dioxide 28.0 Anion Gap 7 BUN 9 Creatinine 0.77 Estim Creat Clear Calc 153.03 Est GFR (MDRD) Af Amer 164 Est GFR (MDRD) Non-Af 136 BUN/Creatinine Ratio 11.6 Glucose 85 Calcium 9.5 Troponin I High Sens 4 Rhythm Strip Rhythm Strip: Sinus Rhythm Rate: 70 Ectopy: PVC(s) EKG Initial EKG: Attestation: I personally reviewed and interpreted this EKG as follows: Interpretation: Sinus Rhythm and No Acute Injury Pattern Comments: Normal EKG Discharge Plan Triage Chief Complaint: Palpitations ED Provider: Minor Ruiz Dx/Rx/DC Orders Clinical Impression: Symptomatic PVCs, Non-cardiac chest pain, Hypokalemia Instructions: PVCs Prescriptions: New metoprolol tartrate 25 mg tablet 25 mg PO BID Qty: 60 0RF No Action ondansetron HCl [Zofran] 4 mg tablet 4 mg PO Q8H PRN (Reason: nausea and vomiting) Qty: 14 0RF aripiprazole [Abilify] 5 mg Tablet 5 mg PO DAILY desvenlafaxine succinate [Pristiq] 50 mg Tablet Extended Release 24 Hr 50 mg PO DAILY Eliquis 5 mg Tablet See Taper PO BID 7 Days Qty: 14 0RF Taper: Apixaban VTE Treatment 10 mg TWICE A DAY for 6 Days 5 mg TWICE A DAY for 30 Days Primary Care Provider: Carlos Prasad Referrals: Christian Baker MD [STAFF PHYSICIAN] - (or colleague/first available web site developer; call for appt) Carlos Prasad MD [Primary Care Provider] - Disposition Disposition: Home, Self Care
[2021-12-23 21:15] LABS: Absolute Lymphocyte Count 2.71 X10^3/uL (0.83-4.51); Absolute Neutrophil Count 8.2 X10^3/uL (2.0-7.7); Basophil# 0.05 X10^3/uL; Basophil% 0.4 % (0-1); Eosinophil# 0.19 X10^3/uL; Eosinophils% 1.6 % (0-5); Hematocrit 45.6 % (40-54); Hemoglobin 14.9 g/dL (13.0-16.5); Lymphocyte # 2.71 X10^3/ul (0.83-4.51); Lymphocyte % 22.4 % (19-41); Mean Corp Hgb Conc 32.7 g/dL (32-36); Mean Corpuscular Hgb 28.3 pg (27.0-32.0); Mean Corpuscular Volume 86.5 fL (80-94); Mean Platelet Vol. 9.9 fl (6.2-12.0); Monocyte# 0.84 X10^3/uL; Monocyte% 6.9 % (0-10); NRBC Flagged by Analyzer 0 % (0-5); Neutrophil # 8.23 X10^3/uL (2.7-7.7); Neutrophil % 68.1 % (47-70); Platelet Count 323 K/mm3 (150-450); RBC Distribution Width CV 12.1 % (11.6-14.6); RBC Distribution Width SD 38.5 fl (35.1-43.9); Red Blood Count 5.27 M/mm3 (4.6-6.2); White Blood Count 12.1 K/mm3 (4.4-11.0)
[2021-12-23 21:33] LABS: Anion Gap 7 (5-15); BUN 9 mg/dL (7-18); BUN/Creat Ratio 11.6 RATIO (10-20); Calcium,Total 9.5 mg/dL (8.5-10.1); Chloride 102 mmol/L (98-107); Creatinine, Serum 0.77 mg/dL (0.70-1.30); EST Glomerular Filtration Rate 136 mL/min (>60); Est Glom Filt Rate - Afr Amer 164 mL/min (>60); Estimated Creatinine Clearance 153.03 ml/min; Glucose 85 mg/dL (74-106); Potassium 3.4 mmol/L (3.5-5.1); Sodium Level 137 mmol/L (136-145); Troponin-I HS 4 pg/mL (3.0-78.0)
[2021-12-23 23:22] VITALS: BP 144/88; PULSE 83; RESP 16; O2SAT 96
[2021-12-24 00:22] VITALS: BP 133/72; PULSE 98; RESP 16; O2SAT 97
[2021-12-24] MEDS: Potassium Chloride Oral Tablet 20 MEQ 40 MEQ PO (00:23)
[2021-12-24] MEDS: Metoprolol Tartrate 25 MG Tablet PO (00:23)
== END 2021-12-24 00:30 | disposition home or self-care (01) ==
PROVIDERS: Emergency Provider Emergency Medicine; PCP Pediatrics; Visit Provider Emergency Medicine
DX: I49.3 Ventricular premature depolarization (principal); E87.6 Hypokalemia; F41.9 Anxiety disorder, unspecified; Z86.711 Personal history of pulmonary embolism; F32.A Depression, unspecified; Z79.899 Other long term (current) drug therapy; Z79.01 Long term (current) use of anticoagulants; Z86.16 Personal history of COVID-19; R07.89 Other chest pain
CPT/HCPCS: 80048; 84484; 85025; 93005; 99284; A4216

== ENCOUNTER 2022-11-10 17:09 | Emergency (ER) | payer BC, SELFPAY ==
[2022-11-10 17:11] VITALS: BP 129/77; PULSE 68; RESP 19; TEMP 36.1; O2SAT 100; BMI 27.1
--- NOTE | 2022-11-10 17:15 | RAD_ITS ---
EXAM: XR CHEST, 2 VIEWS CLINICAL INDICATION: SOB, COUGH TECHNIQUE: Frontal and lateral views of the chest. COMPARISON: No relevant prior studies available. FINDINGS: LUNGS AND PLEURAL SPACES: Unremarkable. No consolidation or edema. No pneumothorax. No effusion. HEART: Unremarkable. Cardiac silhouette not enlarged. MEDIASTINUM: Central airways and mediastinal contour are unremarkable. BONES/JOINTS: Unremarkable. SOFT TISSUES: Unremarkable. RAD/Chest PA and Lateral IMPRESSION: No radiographic evidence of acute cardiopulmonary disease. Electronically Signed: Niall Downey MD at 17:29 EDT ,
--- NOTE | 2022-11-10 17:38 | EDS_ITS ---
HPI History of Present Illness Chief Complaint: Shortness of Breath Detail of Chief Complaint: Shortness of breath Informant: patient Narrative Narrative: Patient presents the emergency department with complaints of shortness of breath over the last 2 days. Patient states that he has had a lot of seasonal allergy type symptoms with some nasal congestion and at times feels like his lungs are closing and burning. He had some wheezing. He denies any fever or significant cough. Patient does have history of anxiety. Denies any other significant medical history. No history of asthma. [facility] Medical History Anxiety Bilateral pulmonary embolism (01/15/21) Depression Heart murmur Palpitations Pneumonia due to COVID-19 virus Home Medications ondansetron HCl 4 mg tablet (Zofran) 4 mg PO Q8H PRN nausea and vomiting #14 tabs 01/06/21 [Rx Last Taken 01/15/21 09:00] aripiprazole 5 mg tablet (Abilify) 5 mg PO DAILY mood 01/15/21 [History Last Taken 01/15/21 09:00] desvenlafaxine succinate 50 mg tablet,extended release 24 hr (Pristiq) 50 mg PO DAILY 01/15/21 [History Last Taken 01/15/21 09:00] apixaban 5 mg tablet (Eliquis) See Taper PO BID 7 days #14 tabs 01/16/21 [Rx Last Taken Unknown] metoprolol tartrate 25 mg tablet 25 mg PO BID #60 tabs 12/23/21 [Rx Last Taken Unknown] prednisone 20 mg tablet 20 mg PO BID #10 tabs 11/10/22 [Rx Last Taken Unknown] Allergy/AdvReac Type Severity Reaction Status Date / Time amoxicillin Allergy Rash Verified 11/10/22 17:11 Social History Smoking Status: Never smoker alcohol intake: never substance use type: does not use caffeine: Yes ROS ROS ED Review of Systems ROS Unobtainable: other Constitutional Constitutional ED: Reports lethargy; Denies chills, fever(s), sweats or weight loss Eyes Eyes: Denies blurry vision, change in vision or diplopia ENT ENT ED: Denies rhinorrhea or sore throat Cardiovascular Cardiovascular: Denies chest pain, orthopnea or racing heartbeat Respiratory/Chest Respiratory/Chest: Reports dyspnea; Denies cough, dyspnea on exertion, orthopnea or sputum Gastrointestinal Gastrointestinal: Denies abdominal pain, diarrhea, nausea or vomiting Genitourinary Genitourinary ED: Denies dysuria, hematuria or urinary frequency Musculoskeletal Musculoskeletal: Denies arthralgias, back pain, myalgias or neck pain Integumentary Denies abscess, Abrasions or rash Neurologic Neurologic: Denies headache(s) or weakness Psychiatric Psychiatric: Denies anxiety, depression or suicidal thoughts Endocrine Endocrinology: Denies polydipsia, polyphagia or polyuria Hematologic/Lymphatic Hematologic/Lymphatic: Denies easy bleeding, easy bruising or lymphadenopathy Allergic/Immunologic Allergic/Immunologic ED: Denies mouth swelling, tongue swelling or urticaria EXAM Physical Exam Const Vital Signs: 11/10/22 17:11 Temperature 97 F L Temperature Source Temporal Pulse Rate 68 Respiratory Rate 19 H Blood Pressure 129/77 H Blood Pressure Mean 94 Pulse Ox 100 Oxygen Delivery Method Room Air Positive well nourished and well developed General Appearance ED: well developed and NAD HEENT Reports TM's clear and moist mucous membranes normocephalic and atraumatic; Negative for trauma or tenderness Tympanic Membrane ED: Yes TM's clear Eyes PERRL and EOMs intact bilaterally General Eye ED: Negative for pale conjunctiva or scleral icterus Neck no lymphadenopathy, supple and no JVD General: Negative for tenderness Chest Wall inspection of chest normal and palpation of chest normal Chest: Negative for tenderness Resp normal respiratory effort and clear to auscultation bilaterally Effort and Inspection: Negative for respiratory distress or pain with movement Auscultation: Negative for rhonchi, wheezes or diminished lung sounds Cardio regular rate, regular rhythm, S1 normal heart sound, S2 normal heart sound and no murmurs Peripheral Pulses: pulses 2+ throughout GI normal to inspection, nondistended, normoactive bowel sounds, soft to palpation, non-tender, non-distended and no masses Back/Spine no CVA tenderness and no thoracic nor lumbar tenderness Extremity normal to inspection General Extremety ED: Negative for edema General Extremity: Negative for edema Neuro oriented x3, CN's II-XII intact bilaterally, no sensory deficits noted and gait normal Sensorium / Orientation: awake, alert, oriented to person, oriented to place and oriented to time Motor Exam: strength 5/5 throughout and strength abnormal Psych mental status grossly normal Skin no rashes or lesions noted and no wounds MDM MDM MDM Narrative Medical decision making narrative: Patient presents with seasonal allergy symptoms and some shortness of breath. Unremarkable vital signs. Lung exam is clear and do not hear any wheezing currently. Chest x-ray was performed via protocol prior to my evaluating the patient and this was normal. This point I feel he can be discharged to home. I will start him on prednisone for few days and given inhaler given his concern about wheezing. Patient to follow-up with his primary care physician within the next 5 to 7 days. He is to return if increasing shortness of breath or condition should worsen anyway. Radiography Diagnostic Testing: Clinical Impression(s) from Imaging Studies Chest X-Ray 11/10/22 17:15 IMPRESSION: No radiographic evidence of acute cardiopulmonary disease. Electronically Signed: Niall Downey MD at 17:29 EDT Reading Location ID and State: [facility] / [place] , Service support , 1 view chest x-ray obtained interpreted by myself as no evidence of acute infiltrate or pneumothorax or acute disease process. Radiology in agreement. Discharge Plan Triage Chief Complaint: Shortness of Breath ED Provider: Aminta Kyle Dx/Rx/DC Orders Clinical Impression: Acute dyspnea Instructions: ED Dyspnea Prescriptions: New prednisone 20 mg tablet 20 mg PO BID Qty: 10 0RF No Action ondansetron HCl [Zofran] 4 mg tablet 4 mg PO Q8H PRN (Reason: nausea and vomiting) Qty: 14 0RF aripiprazole [Abilify] 5 mg Tablet 5 mg PO DAILY desvenlafaxine succinate [Pristiq] 50 mg Tablet Extended Release 24 Hr 50 mg PO DAILY Eliquis 5 mg Tablet See Taper PO BID 7 Days Qty: 14 0RF Taper: Apixaban VTE Treatment 10 mg TWICE A DAY for 6 Days 5 mg TWICE A DAY for 30 Days metoprolol tartrate 25 mg tablet 25 mg PO BID Qty: 60 0RF Primary Care Provider: Care Physician,No Primary Referrals: Bora Sharp MD [Non-Staff] - 5-7 Days Care Physician,No Primary [Primary Care Provider] - Disposition Disposition: Home, Self Care
[2022-11-10] MEDS: predniSONE 20 MG Tablet 40 MG PO (17:43)
[2022-11-10] MEDS: Albuterol Sulfate 8 gm Inhaler (60 puffs) 2 PUFF INHALATION (17:58)
== END 2022-11-10 18:02 | disposition home or self-care (01) ==
LOC: ED 18:01
PROVIDERS: Emergency Provider Emergency Medicine; Visit Provider Emergency Medicine
DX: R06.00 Dyspnea, unspecified (principal); F32.A Depression, unspecified; Z79.899 Other long term (current) drug therapy
CPT/HCPCS: 71046; 99282

== ENCOUNTER 2024-07-23 20:07 | Emergency (ER) | payer BC, SELFPAY ==
[2024-07-23 20:07] VITALS: BP 140/88; PULSE 83; RESP 20; TEMP 36.9; O2SAT 97; BMI 28.0
[2024-07-23 22:56] VITALS: BP 138/83; PULSE 85; RESP 16; O2SAT 99
--- NOTE | 2024-07-23 23:02 | EX.ED.DYSGE1 ---
HPI History of Present Illness Chief Complaint: Constipation Informant: patient Narrative Narrative: Patient is a 24-year-old male with history of anxiety and depression as well as remote history of pulmonary embolus with COVID. Patient states that he typically uses the bathroom every day. However over the past week he has had constipation. He denies any previous abdominal surgeries or family history of intestinal cancer. He states has been no recent procedures that could have led to an ileus or anesthesia use and he states that there has been no new medication. He does report that he took Pristiq for 1 week but that was roughly 2 or 3 weeks ago and otherwise all of his meds have been at baseline. He also states that he still passing flatus. However as he is tried [id number] medications without relief of his constipation he presents for evaluation [facility] Medical History Palpitations Anxiety Depression Bilateral pulmonary embolism (01/15/21) Pneumonia due to COVID-19 virus Heart murmur Home Medications ?Medication ?Instructions ?Recorded ?Last Taken ?Type ondansetron HCl 4 mg tablet 4 mg PO Q8H PRN nausea and 01/06/21 01/15/21 09:00 Rx (Zofran) vomiting #14 tabs aripiprazole 5 mg tablet (Abilify) 5 mg PO DAILY mood 01/15/21 01/15/21 09:00 History desvenlafaxine succinate 50 mg 50 mg PO DAILY 01/15/21 01/15/21 09:00 History tablet,extended release 24 hr (Pristiq) apixaban 5 mg tablet (Eliquis) See Taper PO BID 7 days #14 tabs 01/16/21 Unknown Rx metoprolol tartrate 25 mg tablet 25 mg PO BID #60 tabs 12/23/21 Unknown Rx prednisone 20 mg tablet 20 mg PO BID #10 tabs 11/10/22 Unknown Rx polyethylene glycol 3350 17 17 g PO BID #510 grams 07/24/24 Unknown Rx gram/dose oral powder (Miralax) Allergy/AdvReac Type Severity Reaction Status Date / Time amoxicillin Allergy Rash Verified 07/23/24 20:10 Social History Smoking Status: Never smoker alcohol intake: never substance use type: does not use caffeine: Yes ROS ROS ED Constitutional Constitutional ED: Denies chills or fever(s) ENT ENT ED: Denies sore throat Cardiovascular Cardiovascular: Denies chest pain Respiratory/Chest Respiratory/Chest: Denies cough or dyspnea Gastrointestinal Gastrointestinal: Reports abdominal pain, constipation and nausea; Denies diarrhea or vomiting Genitourinary Genitourinary ED: Denies dysuria Musculoskeletal Musculoskeletal: Denies myalgias Integumentary Denies rash Neurologic Neurologic: Denies headache(s) Psychiatric Psychiatric: Reports anxiety and depression Hematologic/Lymphatic Hematologic/Lymphatic: Denies easy bleeding or easy bruising EXAM Physical Exam Const Vital Signs: 07/23/24 20:07 07/23/24 22:56 07/24/24 00:07 Temperature 98.4 F 98.7 F Temperature Source Temporal Pulse Rate 83 85 84 Respiratory Rate 20 H 16 16 Blood Pressure 140/88 H 138/83 H 127/75 H Blood Pressure Mean 105 101 92 Pulse Ox 97 99 98 Oxygen Delivery Method Room Air Room Air Positive well nourished and well developed General Appearance ED: well developed; Negative for pallor HEENT Reports moist mucous membranes HEENT Narrative: No signs of infection noted in the posterior pharynx Eyes PERRL and EOMs intact bilaterally General Eye ED: Negative for scleral icterus Neck supple Resp normal respiratory effort and clear to auscultation bilaterally Cardio regular rate and regular rhythm Rate: other Other Details: Heart is regular rate and rhythm Radial and carotid pulses are equal and symmetric GI non-distended and no masses GI Narrative: Abdomen is soft and nondistended with hypoactive bowel sounds There is mild diffuse pain on palpation without voluntary guarding or rigidity No pulsatile mass or fluid wave No increased tympany Auscultation: hypoactive bowel sounds Palpation: soft Extremity normal to inspection Neuro oriented x3, CN's II-XII intact bilaterally and no sensory deficits noted Sensorium / Orientation: alert Motor Exam: strength 5/5 throughout Psych mental status grossly normal Skin no rashes or lesions noted, no wounds and skin turgor normal General Skin Exam: Negative for jaundice or pallor MDM MDM MDM Narrative Medical decision making narrative: Patient arrived to the ER with stable vitals and a soft nonsurgical abdomen. He reported constipation for approximately 1 week that was not responsive to [id number] medication. He is low risk for ileus or small bowel obstruction but with concern for this a acute abdominal x-ray was performed. This revealed no air-fluid levels going against obstruction and no intestinal distention going against ileus. Therefore at this time symptoms appear to be consistent with functional constipation and I do not feel there is need for laboratory testing or a CT scan as patient is abdomen is soft and nonsurgical and vital stable. Therefore he will be prescribed magnesium citrate and MiraLAX but is otherwise safe for discharge History & Record Review Discussion w/independent historian: Patient Radiography Diagnostic Testing: Clinical Impression(s) from Imaging Studies Acute Abdomen Series 07/23/24 23:15 IMPRESSION: Negative abdominal radiographs. Reading Location: [facility] Acute abdominal series with 1 view chest as interpreted by the emergency medicine physician reveals a nonspecific nonobstructive bowel gas pattern and chest x-ray component reveals no acute infiltrate or pneumothorax Discharge Plan Triage Chief Complaint: Constipation ED Provider: Ha Irizarry Dx/Rx/DC Orders Clinical Impression: Constipation, Anxiety and depression Instructions: Treating Constipation, ED Constipation (Adult) Prescriptions: New polyethylene glycol 3350 [Miralax] 17 gram/dose powder 17 g PO BID Qty: 510 1RF No Action ondansetron HCl [Zofran] 4 mg tablet 4 mg PO Q8H PRN (Reason: nausea and vomiting) Qty: 14 0RF aripiprazole [Abilify] 5 mg Tablet 5 mg PO DAILY desvenlafaxine succinate [Pristiq] 50 mg Tablet Extended Release 24 Hr 50 mg PO DAILY Eliquis 5 mg Tablet See Taper PO BID 7 Days Qty: 14 0RF Taper: Apixaban VTE Treatment 10 mg TWICE A DAY for 6 Days 5 mg TWICE A DAY for 30 Days metoprolol tartrate 25 mg tablet 25 mg PO BID Qty: 60 0RF prednisone 20 mg tablet 20 mg PO BID Qty: 10 0RF Primary Care Provider: Bora Sharp Referrals: Bora Sharp MD [Primary Care Provider] - Care Physician,No Primary [Non-Staff] - Activity Restrictions/Additional Instructions: Please drink half the bottle of magnesium citrate in the morning. If there is no bowel movement within 3 to 4 hours after drinking the magnesium citrate then finished the bottle. Once this stimulates bowel movements keep them from a progressing to constipation by taking MiraLAX twice a day as prescribed. Return to the ER should you have any further concerns Print Language: Portuguese Disposition Disposition: Home, Self Care Discharge Date/Time: 07/24/24 00:24
--- NOTE | 2024-07-23 23:15 | RAD_ITS ---
PROCEDURE: ACUTE ABDOMEN INC CHEST REASON FOR EXAM: 24-year-old male, constipation. TECHNIQUE: Supine and upright views of the abdomen. COMPARISON: Chest radiograph 11/10/2022. FINDINGS: Bowel gas pattern is normal. No evidence of bowel obstruction. No free air. No suspicious calcifications. The bones are unremarkable. The heart is normal in size. No focal consolidation, pleural effusion or pneumothorax. RAD/Acute Abdomen Inc Chest IMPRESSION: Negative abdominal radiographs. Reading Location: [id number]
[2024-07-24 00:07] VITALS: BP 127/75; PULSE 84; RESP 16; TEMP 37.1; O2SAT 98
[2024-07-24] MEDS: Magnesium Citrate 300 ML PO (00:23)
== END 2024-07-24 00:24 | disposition home or self-care (01) ==
PROVIDERS: Emergency Provider Emergency Medicine; PCP Family Medicine; Visit Provider Emergency Medicine
DX: K59.00 Constipation, unspecified (principal); F41.9 Anxiety disorder, unspecified; F32.A Depression, unspecified; Z79.899 Other long term (current) drug therapy
CPT/HCPCS: 74022; 99282